=== PATIENT | male | born 1965 | race African-American/Black ===

== ENCOUNTER 2025-10-30 07:32 | Day surgery (SDC) | payer OTHER, SELFPAY ==
--- OUTSIDE RECORDS SUMMARY | 2025-10-08 19:56 | XMS_ITS | Patient Health Record ---
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 Name Role Phone Rex KILGORE, Carol Primary Care Provider Ayad Renee Jr Unavailable Allergies No Known Allergies Reason For Referral No Information Medications Medication SIG (Take, Route, Frequency, Duration) Notes Start Date End Date Status Irbesartan Not-Takin g/PRN Ozempic (0.25 or 0.5 MG/DOSE) Active Baby Aspirin Active Atorvastatin Calcium 20 MG Tablet TAKE 1 TABLET BY MOUTH EVERY DAY Oral; Duration: 90 Active metFORMIN HCl 500 MG Tablet TAKE 1 TABLET BY MOUTH EVERY DAY Oral; Duration: 90 Not-Taking/PRN Losartan Potassium 50 MG Tablet TAKE 1 TABLET BY MOUTH EVERY DAY Oral; Duration: 90 Active Sildenafil Citrate 100 MG Tablet TAKE 1 TABLET(S) NEEDED BY ORAL ROUTE FOR 6 DAYS. Oral; Duration: 30 Active MiraLax (colon prep) 8.3 ounce ((238) grams mixed with Gatorade or Crystal Light orally begin at 5:00 p.m. the day before the procedure; Duration: 1 day 04/02/2020 Not-Taking/PRN Tadalafil 20 MG Tablet TAKE 1 TABLET BY MOUTH EVERY DAY NEEDED Oral; Duration: 30 Not-Taking/PRN Immunizations Vaccine Route Administration Date Status Comme nts Influenza Unknown 07/20/2019 Administered Influenza Unknown 09/16/2024 Administered Social History Social History Drug/Alcohol: Social Info Question Answer Notes AUDIT-C (Standard) Did you have a drink containing alcohol in the past year? Yes How often did you have a drink containing alcohol in the past year? 2 to 3 times a week (3 points) How many drinks did you have on a typical day when you were drinking in the past year? 1 or 2 drinks (0 point) How often did you have six or more drinks on one occasion in the past year? Never (0 point) Points 3 Interpretation Negative Additional Details Category Social Info Options Details Miscellaneous: Marital status: Occupation: cash accountant Section Notes: occasional cigars occasional cigars occasional cigars Problems Problem Type SNOMED Code ICD Code Onset Dates Problem Status W/U Status Risk Notes Problem Colon cancer screening (297054105) Colon cancer screening (Z12.11) Active confirmed Problem Long-term current use of drug therapy (516037937) Encounter for long-term (current) use of other high-risk medications (Z79.899) Active confirmed Problem History of polyp of colon (situation) (115226585) Personal history of colonic polyps (Z86.010) Active confirmed Problem Pre-procedure evaluation check (037576008) Encounter for other preprocedural examination (Z01.818) Active confirmed Vital Signs Temperature 96.7 degrees Fahrenheit 09/16/2025 Blood pressure diastolic 01 mm Hg 09/16/2025 Height 69 in 09/16/2025 Blood pressure systolic 001 mm Hg 09/16/2025 Weight 215.8 lbs 09/16/2025 BMI 31.86 kg/m2 09/16/2025 Encounters Encounter Location Date Provider Diagnosis [facility] [address] [facility] [address] [place] [id number] 09/16/2025 Ayad Moran Jr Colon cancer screening Z12.11 ; Encounter for other preprocedural examination Z01.818 ; Personal history of colonic polyps Z86.010 and Encounter for long-term (current) use of other high-risk medications Z79.899 Assessments Encounter Date Diagnosis (ICD Code) Assessment Notes Treatment Notes Treatment Clinical Notes Section Notes 09/16/2025 Colon cancer screening (ICD-10 - Z12.11) We discussed colonoscopy today. We discussed risks and benefits of the procedure today. He understands these and agrees to proceed. He is advised to stop aspirin and Ozempic 1 week before the procedure. 09/16/2025 Encounter for other preprocedural examination (ICD-10 - Z01.818) We discussed colonoscopy today. We discussed risks and benefits of the procedure today. He understands these and agrees to proceed. He is advised to stop aspirin and Ozempic 1 week before the procedure. 09/16/2025 Personal history of colonic polyps (ICD-10 - Z86.010) We discussed colonoscopy today. We discussed risks and benefits of the procedure today. He understands these and agrees to proceed. He is advised to stop aspirin and Ozempic 1 week before the procedure. 09/16/2025 Encounter for long-term (current) use of other high-risk medications (ICD-10 - Z79.899) We discussed colonoscopy today. We discussed risks and benefits of the procedure today. He understands these and agrees to proceed. He is advised to stop aspirin and Ozempic 1 week before the procedure. Plan Of Treatment Future Test Test Name Order Date COLONOSCOPY 08/18/2016 COLONOSCOPY 04/02/2020 COLONOSCOPY 09/16/2025 Next Appt Details Provider Name:Ayad crisostomo , 10/30/2025 09:10:00 AM, [address] [place] [address] , [place], [place], [id number], Insurance Providers Payer Name Payer Address Payer Phone Subscriber Number Group Number Insured Name Patient Relationship to Insured Coverage Start Date Coverage End Date [facility] [address] [place] [phone] [id number] CHETAN BRASWELL Self - patient is the insured Medical (General) History Medical History History ICD Code diabetes mellitus hypertension hypercholesterolemia Colonoscopy 2020, normal, 5-year follow- up for history of polyps. Surgical History Surgery Date(Month/Year) achilles tendon repair 2004 tonsillectomy as child vasectomy
--- OUTSIDE RECORDS SUMMARY | 2025-10-08 19:56 | XMS_ITS | Data Portability ---
Author Organization [facility], Main Office Address [address] [facility] [address] [place] [id number] Care Team Providers Care Slubber Tender Name Role Phone MONTANA MORAN JR Microbiology Technologist KAITLYNN NEWMAN Primary Care Provider YUNI CUTLER Urologist NIKIA MEJIA Director Of Enterprise Applications RADHA JOSE Advertising Copy Writer RASHEL JOSUE Human Performance Professor [facility] Clinical Radiologist Assessment No assessment recorded. Plan of Treatment Reminders Order Date Submit Date Provider Last Modified By Organization Details Last Modified Time Details Appointments PE EST 2025 08:30A M Kaitlynn Newman PAKrzysztof Not available Not available Not available Lab hemogl obin A1C, finger stick 2024 025 In-Office Order, Internal Use Only DO Not Attach Compendium DO Not Attach Compendium, Do Not Delete/merge, [id number] 08/24/2025 09:06:50 CMP, serum or plasma 2024 025 LEUXS [facility] (Centralized Electronic Ordering - All Locations), Patient Can Go To The Location Of Their Choice, [id number] 08/24/2025 09:54:56 microa lbumin /creat inine, mass ratio, urine 2024 025 LEXUS [facility] (Centralized Electronic Ordering - All Locations), Patient Can Go To The Location Of Their Choice, [id number] 08/24/2025 09:54:56 HbA1c (hemog lobin A1c), blood 2024 025 LEXUS [facility] (Centralized Electronic Ordering - All Locations), Patient Can Go To The Location Of Their Choice, [id number] 08/24/2025 09:54:58 lipid panel, serum 2024 025 LEXUS [facility] (Centralized Electronic Ordering - All Locations), Patient Can Go To The Location Of Their Choice, [id number] 08/24/2025 09:55:19 hemogl obin A1C, finger stick 2024 025 [email or web address] In-Office Order, Internal Use Only DO Not Attach Compendium DO Not Attach Compendium, Do Not Delete/merge, [id number] 06/05/2025 10:44:41 lipid panel, serum 2024 025 LEXUS [facility] (Centralized Electronic Ordering - All Locations), Patient Can Go To The Location Of Their Choice, [id number] 02/13/2025 17:49:50 PSA, serum or plasma - Screen ing 2024 025 LEXUS [facility], [address], [place], [address], 02/13/2025 17:49:51 CMP, serum or plasma 2024 025 [facility], [address], [place], [address], 02/13/2025 17:49:50 TSH, serum or plasma 2024 025 [facility], [address], [place], [address], 02/13/2025 17:49:52 microa lbumin /creat inine, mass ratio, urine 2024 025 LEXUS [facility] (Centralized Electronic Ordering - All Locations), Patient Can Go To The Location Of Their Choice, [id number] 02/13/2025 17:49:51 HbA1c (hemog lobin A1c), blood 2024 025 LEXUS [facility] (Centralized Electronic Ordering - All Locations), Patient Can Go To The Location Of Their Choice, 02/13/2025 17:49:52 hemogl obin A1C, finger stick 2023 024 In-Office Order, Internal Use Only DO Not Attach Compendium DO Not Attach Compendium, Do Not Delete/merge, [id number] 11/04/2024 08:58:05 CMP, serum or plasma 2023 024 [email or web address] [facility] (Centralized Electronic Ordering - All Locations), Patient Can Go To The Location Of Their Choice, 06/02/2025 08:28:00 microa lbumin /creat inine, mass ratio, urine 2023 024 LEXUS [facility] (Centralized Electronic Ordering - All Locations), Patient Can Go To The Location Of Their Choice, 11/04/2024 09:02:07 HbA1c (hemog lobin A1c), blood 2023 024 [email or web address] [facility] (Centralized Electronic Ordering - All Locations), Patient Can Go To The Location Of Their Choice, 06/02/2025 08:28:43 lipid panel, serum 2023 024 [email or web address] [facility] (Centralized Electronic Ordering - All Locations), Patient Can Go To The Location Of Their Choice, 06/02/2025 08:28:17 CBC w/ auto diff 2023 024 [email or web address] [facility] (Centralized Electronic Ordering - All Locations), Patient Can Go To The Location Of Their Choice, 06/02/2025 08:28:29 Referral gastro entero logist referr daniel - Ant colono scopy. Dx: tubula r adenom a. 2024 025 [email or web address] Moran Jr, MD, [address] [place] [address] [place], [address], 08/12/2025 10:07:21 sleep medici ne referr daniel nino, hypert ension , BMI over 30. 2024 025 [facility], [address] [place], [address], 04/03/2025 10:36:40 diabet ic ophtha lmolog y referr al 2024 025 [email or web address] Dev Avila MD, [address] [place], [address], 02/03/2025 11:23:47 Procedures None record ed. Surgeries None record ed. Imaging XR, chest, 2 view 2024 [facility], [address] [place], [address], 02/26/2025 15:07:00 Medication Orders Ozempi c 1 mg/dos e (4 mg/3 mL) subcut aneous pen inject or 2024 025 [facility], [address] [place], [address], 08/24/2025 10:22:00 Ozempi c 0.25 mg or 0.5 mg (2 mg/3 mL) subcut aneous pen inject or 2024 025 [email or web address] [facility]/Pharmacy #[id number], [address] [place], [address], 08/04/2025 15:37:01 benzon atate 100 mg capsul e 2024 025 [facility]/Pharmacy #1026, [address] [place], [address], 03/15/2025 05:01:12 albute rol sulfat e HFA 90 mcg/ac tuatio n aeroso l inhale r 2024 025 [facility]/Pharmacy #1026, [address] [place], [address], 06/05/2025 09:46:45 predni sone 20 mg tablet 04/10/ 2025 07/18/2 025 [facility]/Pharmacy #[id number], [address] [place], [address], 06/05/2025 09:47:01 Patient TargetsNo targets recorded. Patient Instructions Encounter Date Encounter Id Patient Instructions Last Modified By Organization Details Last Modified Time 11/04/2024 [id number] high blood pressure: care instructions Not available 11/04/2024 08:58:03 learning about high blood pressure Not available 11/04/2024 08:58:03 type 2 diabetes: care instructions Not available 11/04/2024 08:58:03 high cholesterol : care instructions Not available 11/04/2024 09:02:11 02/03/2025 [id number] high cholesterol : care instructions [email or web address] Not available 02/03/2025 09:57:28 snoring: care instructions Not available 02/03/2025 10:29:04 Prostate Cancer Screening [email or web address] Not available 02/03/2025 09:57:28 high blood pressure: care instructions Not available 02/03/2025 09:57:28 learning about high blood pressure [email or web address] Not available 02/03/2025 09:57:28 dash diet: care instructions Not available 02/03/2025 10:47:41 type 2 diabetes: care instructions [email or web address] Not available 02/03/2025 09:57:27 hypogonadism: care instructions Not available 02/03/2025 09:57:28 testicular self-exam: care instructions [email or web address] Not available 02/03/2025 09:57:28 02/26/2025 [id number] saline nasal washes: care instructions [email or web address] Not available 02/26/2025 14:23:23 rec. albuterol 1-2 puffs 3x/day x 3 days, then use every 4 hours as needed for shortness of breath / coughing fits pmadden Not available 02/26/2025 14:19:02 Follow up if no improvement or if symptoms worsen. [email or web address] Not available 02/26/2025 14:20:35 06/05/2025 [id number] type 2 diabetes: care instructions [email or web address] Not available 06/05/2025 10:44:40 08/24/2025 [id number] high blood pressure: care instructions Not available 08/24/2025 10:00:08 learning about high blood pressure Not available 08/24/2025 10:00:08 type 2 diabetes: care instructions Not available 08/24/2025 09:03:10 high cholesterol : care instructions Not available 08/24/2025 09:55:17 body mass index: care instructions Not available 08/24/2025 10:00:08 learning about healthy weight Not available 08/24/2025 10:00:08 Reason for Referral Diabetic Ophthalmology Refer ral for Type 2 diabetes mellitus without complication Referring Physician: Kaitlynn Newman Internal Medicine, Encounter Date: 02/03/2025 Microbiology Technologist Referral for Tubular adenoma Repeat colonoscopy. Dx: tubular adenoma. Referring Physician: Kaitlynn Newman, Internal Medicine, Encounter Date: 02/03/2025 Sleep Medicine Referral for Snoring Snoring, hypertension, BMI over 30. Referring Physician: Kaitlynn Newman Internal Medicine, Encounter Date: 02/03/2025 Results Created Date Observation Date Name Description Value Unit Range Abnormal Flag Note LastModifiedBy Organization Detail LastModifiedTime 11/04/20 24 11/04/2024 hemog lobin A1C, finge rstic k A1C 6.1 % 4-6 abnormal Not Available In-Office Order Internal Use Only DO Not Attach Compendium DO Not Attach Compendium, Do Not Delete/merge, [id number] 11/04/2024 08:48:13 02/04/2002/03/2025 COMP. METAB OLIC PANEL (14) glucose 140 mg/dL 70-99 above high normal Not Available [facility] ([facility]) [address] [facility], [place], [address], 02/13/2025 17:49:49 02/04/20 25 02/03/2025 COMP. METAB OLIC PANEL (14) BUN 14 mg/dL 8-27 normal Not Available [facility] ([facility]) [address] [facility] [place], [address], 02/13/2025 17:49:49 02/04/20 25 02/03/2025 COMP. METAB OLIC PANEL (14) creatinine 1.23 mg/dL 0.76-1 .27 normal Not Available [facility] ([facility]) [address] [facility] [place], [address], 02/13/2025 17:49:49 02/04/20 25 02/03/2025 COMP. METAB OLIC PANEL (14) eGFR 67 mL/mi n/1.7 3 >59 normal Not Available [facility] ([facility]) [address] [facility] [place], [address], 02/13/2025 17:49:49 02/04/20 25 02/03/2025 COMP. METAB OLIC PANEL (14) BUN/creatini ne ratio 11 10-24 normal Not Available [facility] ([facility]) [address] [facility] [place], [address], 02/13/2025 17:49:49 02/04/20 25 02/03/2025 COMP. METAB OLIC PANEL (14) sodium 140 mmol/ L 134-14 4 normal Not Available [facility] ([facility]) [address] [place], [address], 02/13/2025 17:49:49 02/04/20 25 02/03/2025 COMP. METAB OLIC PANEL (14) potassium 4.2 mmol/ L 3.5-5. 2 normal Not Available [facility] ([facility]) [address] [place], [address], 02/13/2025 17:49:49 02/04/20 25 02/03/2025 COMP. METAB OLIC PANEL (14) chloride 104 mmol/ L 96-106 normal Not Available [facility] ([facility]) [address] [place], [address], 02/13/2025 17:49:49 02/04/20 25 02/03/2025 COMP. METAB OLIC PANEL (14) carbon dioxide, total 21 mmol/ L 20-29 normal Not Available [facility] ([facility]) [address] [place], [address], 02/13/2025 17:49:49 02/04/20 25 02/03/2025 COMP. METAB OLIC PANEL (14) protein, total 7.2 g/dL 6.0-8. 5 normal Not Available [facility] ([facility]) [address] [place], [address], 02/13/2025 17:49:49 02/04/20 25 02/03/2025 COMP. METAB OLIC PANEL (14) albumin 4.6 g/dL 3.9-4. 9 normal Not Available [facility] ([facility]) [address] [place], [address], 02/13/2025 17:49:49 02/04/20 25 02/03/2025 COMP. METAB OLIC PANEL (14) globulin, total 2.6 g/dL 1.5-4. 5 Not Available [facility] ([facility]) [address] [place], [address], 02/13/2025 17:49:49 02/04/20 25 02/03/2025 COMP. METAB OLIC PANEL (14) bilirubin, total 0.9 mg/dL 0.0-1. 2 normal Not Available [facility] ([facility]) [address] [place], [address], 02/13/2025 17:49:49 02/04/20 25 02/03/2025 COMP. METAB OLIC PANEL (14) alkaline phosphatase 58 IU/L 44-121 normal Not Available [facility] ([facility]) [address] [place], [address], 02/13/2025 17:49:49 02/04/20 25 02/03/2025 COMP. METAB OLIC PANEL (14) AST (SGOT) 16 IU/L 0-40 normal Not Available [facility] ([facility]) [address] [place], [address], 02/13/2025 17:49:49 02/04/20 25 02/03/2025 COMP. METAB OLIC PANEL (14) ALT (SGPT) 22 IU/L 0-44 normal Not Available [facility] ([facility]) [address] [place], [address], 02/13/2025 17:49:49 02/04/20 25 02/04/2025 COMP. METAB OLIC PANEL (14) calcium 9.4 mg/dL 8.6-10 .2 normal Not Available [facility] ([facility]) [address] [place], [address], 02/13/2025 17:49:49 02/04/20 25 02/03/2025 LIPID PANEL cholesterol, total 179 mg/dL 100-19 9 normal Not Available [facility] ([facility]) [address] [place], [address], 02/13/2025 17:49:50 02/04/20 25 02/03/2025 LIPID PANEL triglyceride s 84 mg/dL 0-149 normal Not Available [facility] ([facility]) [address] [place], [address], 02/13/2025 17:49:50 02/04/20 25 02/03/2025 LIPID PANEL HDL cholesterol 67 mg/dL >39 normal Not Available [facility] ([facility]) [address] [place], [address], 02/13/2025 17:49:50 02/04/20 25 02/03/2025 LIPID PANEL VLDL cholesterol lindsey 15 mg/dL 5-40 Not Available [facility] ([facility]) [address] [facility], [place], [address], 02/13/2025 17:49:50 02/04/20 25 02/03/2025 LIPID PANEL LDL chol calc ([email or web address] 97 mg/dL 0-99 Not Available [facility] ([facility]) [address] [facility], [place], [address], 02/13/2025 17:49:50 02/04/20 25 02/03/2025 LIPID PANEL LDL calc comment: LAMINATOR HAND Not Available [facility] ([facility]) [address] [facility], [place], [address], 02/13/2025 17:49:50 02/04/20 25 02/05/2025 ALBUM IN/CR EAT RATIO , RANDO M UR creatinine, urine 87.6 mg/dL not estab. normal Not Available [facility] ([facility]) [address] [facility], [place], [address], 02/13/2025 17:49:51 02/04/20 25 02/05/2025 ALBUM IN/CR EAT RATIO , RANDO M UR albumin, urine <3.0 ug/mL not estab. Not Available [facility] ([facility]) [address] [facility], [place], [address], 02/13/2025 17:49:51 02/04/20 25 02/05/2025 ALBUM IN/CR EAT RATIO , RANDO M UR alb/creat ratio <3 mg/g_ creat 0-29 Cecille l: 0 - 29 Moder ately incre ased: 30 - 300 Sever clyde incre ased: >300 Not Available [facility] ([facility]) [address] [facility], [place], [address], 02/13/2025 17:49:51 02/04/20 25 02/03/2025 PSA TOTAL (REFL EX TO FREE) reflex criteria Commen t The perce nt free PSA is perfo rmed on a refle x basis only when the total PSA is betwe en 4.0 and 10.0 ng/mL . Not Available [facility] ([facility]) [address] [facility], [place], [address], 02/13/2025 17:49:51 02/04/20 25 02/04/2025 PSA TOTAL (REFL EX TO FREE) prostate specific Ag 0.5 NG/mL 0.0-4. 0 normal Lianne ECLIA metho dolog y. Accor ding to the Ameri can Urolo gical Assoc iatio n, Serum PSA shoul d decre ase and remai n at undet ectab le level s after radic al prost atect sabrina. The AUA defin es bioch emica l recur rence as an initi al PSA value 0.2 ng/mL or great er follo wed by a subse quent confi rmato ry PSA value 0.2 ng/mL or great er. Value s obtai brisa with diffe rent assay metho ds or kits canno t be used inter allan eably . Resul ts canno t be inter prete d as absol jeb evide nce of the prese nce or absen ce of césar nieves se. Not Available [facility] ([facility]) [address] [facility], [place], [address], 02/13/2025 17:49:51 02/04/2002/13/2025 THYRO ID STIMU LATIN G HORMO NE TSH-icma 1.7 uu/mL Refer ence Range : Non-P regna nt Adult 0.450 -4.50 0 Not Available [facility] [address] [facility], [place], [address], 02/13/2025 17:49:51 02/04/20 25 02/03/2025 HEMOG LOBIN A1C hemoglobin A1C 6.3 % 4.8-5. 6 above high normal Predi abete s: 5.7 - 6.4 Diabe collin: >6.4 Glyce ines contr ol for adult s with diabe collin: <7.0 Not Available [facility] ([facility]) [address] [facility], [place], [address], 02/13/2025 17:49:52 06/05/2006/05/2025 hemog lobin A1C, nichole rstic k A1C 6.9 % 4-6 abnormal Not Available In-Office Order Internal Use Only DO Not Attach Compendium DO Not Attach Compendium, Do Not Delete/merge, [id number] 06/05/2025 09:39:57 08/24/2008/24/2025 hemog lobin A1C, finge rstic k A1C 5.1 % 4-6 normal Not Available In-Office Order Internal Use Only DO Not Attach Compendium DO Not Attach Compendium, Do Not Delete/merge, [id number] 08/24/2025 08:34:44 02/27/2002/26/2025 XR, chest , 2 view Chest 2 Views Fronta l and Lat Reason : cough COMPAR LUCY: None. FINDIN GS: LINES AND TUBES: None. LUNGS AND PLEURA : Clear lungs. Normal pulmon narciso vascul arity. No pleura l effusi on. No pneumo thorax . HEART, MEDIAS TINUM AND ELEN: Heart is normal in size. Normal medias tinal and hilar contou r. BONES AND SOFT TISSUE S: No acute abnorm ality. IMPRES JOHNY: No acute cardio pulmon narciso diseas e is seen. WSN: [id number] Orderi ng Physic german: Steve Newman Dictat ed By: Jan Bernstein MD, V Dictat ed Date/T sheri: 3:03 pm Review ed By: Mary abbasi MD, Jan Corbett Signed By: Jan Bernstein MD, V Signed Date/T sheri: 3:03 pm Transc ribed By: VLAD Transc ribed Date/T sheri: 3:03 pm Patien t Class: Outpat ient [facility] ([facility]) [address] , [place], [address], 03/01/2025 13:05:07 02/27/2002/26/2025 XR, chest No observ ation record ed. [facility] [address], [place], [address], 03/06/2025 14:07:19 Result Notes Documentation Provider Name and Address Organization Details Recorded Time Xr, Chest, 2 View : Chest 2 Views Frontal and Lat Reason: cough COMPARISON: None. FINDINGS: LINES AND TUBES: None. LUNGS AND PLEURA: Clear lungs. Normal pulmonary vascularity. No pleural effusion. No pneumothorax. HEART, MEDIASTINUM AND ELEN: Heart is normal in size. Normal mediastinal and hilar contour. BONES AND SOFT TISSUES: No acute abnormality. IMPRESSION: No acute cardiopulmonary disease is seen. WSN: [id number] Ordering Physician: Kaitlynn Newman Dictated By: Jan Wilburn MD, V Dictated Date/Time: 02/26/25 3:03 pm Reviewed By: Jan Wilburn MD, V Signed By: Jan Wilburn MD, V Signed Date/Time: 02/26/25 3:03 pm Transcribed By: VLAD Transcribed Date/Time: 02/26/25 3:03 pm Patient Class: Outpatient Kaitlynn Newman PA-C [id number] [facility] [address] [facility], [place], [address], [facility] 03/01/[place]25 13:05:07 Problems Name Problem SNOMED Code Status Onset Date Resolution Date Notes Provider Name and Address Organization Details Recorded Time Hyperten sive disorder 73108907 Completed 07/22/2019 Barbara fuller [facility] 9 09:41:10 [facility] hyperten johny 73965126 Active Not Available [facility] 3 17:06:32 Influenz a vaccine needed 92111574865 06 Completed 200806/09/2014 RECORDED 02/20/20 09 8:55AM BY DM FERREIRA HISTORIC AL SUMMARY Nola fuller [facility] 6 09:01:29 Active or passive immuniza tion Completed 200806/09/2014 RECORDED 02/20/20 09 8:53AM BY NOLA JEAN MD, OFFICE VISIT Nola fuller, [facility] 6 09:01:29 Influenz a vaccine needed [id number] 06 Completed 200806/29/2014 RECORDED 02/20/20 09 8:55AM BY DM FERREIRA, HISTORIC AL SUMMARY Nola fuller, [facility] 6 09:01:29 Active or passive immuniza tion Completed 200806/29/2014 RECORDED 02/20/20 09 8:53AM BY NOLA JEAN MD, OFFICE VISIT Nola fuller, [facility] 6 09:01:29 Blood chemistr y outside referenc e range 824706106 Completed 201206/09/2014 RECORDED 07/29/20 13 9:08AM BY JOYCELYN NEWMAN MA, ANNOTATI ON/ADDEN DUM Nola fuller, [facility] 6 09:01:29 Balanopo sthitis 50512415 Completed 201206/09/2014 RECORDED 07/29/20 13 9:08AM BY JOYCELYN NEWMAN MA, JOSE ON/ADDEN DUM Nola fuller, [facility] 6 09:01:29 Type 2 diabetes mellitus without complica tion 951410085 Active 2012 DM Salcedo, [facility] 5 08:34:11 Hyperlip idemia 30825651 Active 2012 Not Available [facility] 3 17:06:32 Uncontro lled type 2 diabetes mellitus 710750899 Completed 201206/09/2014 RECORDED 07/29/20 13 9:08AM BY JOYCELYN NEWMAN MA, ANNOTATI ON/ADDEN DUM Nola fuller, [facility] 6 09:01:28 Increase d frequenc y of urinatio n 109131947 Completed 201206/09/2014 RECORDED 07/29/20 13 9:08AM BY JOYCELYN NEWMAN MA, JOSE ON/ADDEN DUM Nola Elizabeth'Alessand ro null, [facility] 6 09:01:29 Viral exanthem [id number] Completed 201206/09/2014 IMPRESSI ON: RECENT VIRAL LIKE ILLNESS, NOW WITH MILDLY PRURITIC PAPULAR SYSTEMIC APPEARRI NG RASH. NOT CONSISTE NT WITH HAND/ADRIEL T/MOUTH ON EXAM. REASSURE D PT THIS WILL LIKELY RESOLVE SPONTANE OUSLY. MAY CONTINUE WITH OTC BENADRYL PRN. F/U IF SXS WORSEN OR FAIL TO IMPROVE. ; RECORDED 07/29/20 13 9:08AM BY JOYCELYN NEWMAN MA, JOSE ON/ADDEN DUM Nola Johnson'Alessand ro null, [facility] 6 09:01:28 Visual disturba nce 69648936 Completed 201206/09/2014 RECORDED 07/29/20 13 9:08AM BY JOYCELYN NEWMAN MA, JOSE ON/ADDEN DUM Nola Elizabeth'Alessand ro null, [facility] 6 09:01:28 Blood chemistr y outside referenc e range 530506555 Completed 201206/29/2014 RECORDED 07/29/20 13 9:08AM BY JOYCELYN NEWMAN MA, JOSE ON/ADDEN DUM Nola Eliazbeth'Alessand ro null, [facility] 6 09:01:29 Balanopo sthitis 69004423 Completed 201206/29/2014 RECORDED 07/29/20 13 9:08AM BY JOYCELYN NEWMAN MA, JOSE ON/ADDEN DUM Nola D'Alessand ro null, [facility] 6 09:01:29 Uncontro lled type 2 diabetes mellitus 708033463 Completed 201206/29/2014 RECORDED 07/29/20 13 9:08AM BY JOYCELYN NEWMAN MA, JOSE ON/ADDEN DUM Nola D'Alessand ro null, [facility] 6 09:01:28 Increase d frequenc y of urinatio n 040902334 Completed 201206/29/2014 RECORDED 07/29/20 13 9:08AM BY JOYCELYN NEWMAN MA, JOSE ON[facility] LangeAlessand ro null, [facility] 6 09:01:29 Viral exanthem [id number] Completed 201206/29/2014 IMPRESSI ON: RECENT VIRAL LIKE ILLNESS, NOW WITH MILDLY PRURITIC PAPULAR SYSTEMIC APPEARRI NG RASH. NOT CONSISTE NT WITH HAND/ADRIEL T/MOUTH ON EXAM. REASSURE D PT THIS WILL LIKELY RESOLVE SPONTANE OUSLY. MAY CONTINUE WITH OTC BENADRYL PRN. F/U IF SXS WORSEN OR FAIL TO IMPROVE. ; RECORDED 07/29/20 13 9:08AM BY JOYCELYN NEWMAN MA, JOSE ON[facility] Nola Belle ro null, [facility] 6 09:01:28 Visual disturba nce 05494022 Completed 201206/29/2014 RECORDED 07/29/20 13 9:08AM BY JOYCELYN NEWMAN MA, JOSE ON[facility] Nola Belle ro null, [facility] 6 09:01:28 Adult health examinat ion Completed 201306/09/2014 RECORDED 02/05/20 14 8:29AM BY DAMARIS SCALES MA, JOSE ON[facility] Nola Belle ro null, [facility] 6 09:01:29 Hemorrho ids [id number] Completed 201306/09/2014 RECORDED 02/05/20 14 8:29AM BY DAMARIS SCALES MA, JOSE ON/[facility] LangeAlesamm ro null, [facility] 6 09:01:28 Renewal of prescrip tion Completed 201306/09/2014 RECORDED 02/05/20 14 8:29AM BY DAMARIS SCALES MA, ANNOTATI ON/ADDEN DUM Nola stroud null, [facility] 6 09:01:29 Patient status finding [id number] Completed 201306/09/2014 RECORDED 02/05/20 14 8:29AM BY DAMARIS SCALES MA, ANNOTTANESHA ON/ADDEN DUM Nola Belle ro null, [facility] 6 09:01:29 Tubercul osis screenin g Completed 201306/09/2014 RECORDED 02/05/20 14 8:30AM BY DAMARIS SCALES MA, NURSE VISIT Nola fuller, [facility] 6 09:01:29 Administ ration of diphther ia and tetanus vaccine Completed 201305/01/2017 Shirley fuller, [facility] 7 09:07:58 Adult health examinat ion Completed 201306/29/2014 RECORDED 02/05/20 14 8:29AM BY DAMARIS SCALES MA, JOSE ON/ADDEN DUM Nola fuller, [facility] 6 09:01:29 Hemorrho ids [id number] Completed 201306/29/2014 RECORDED 02/05/20 14 8:29AM BY DAMARIS SCALES MA, JOSE ON/ADDEN DUM Nola fuller, [facility] 6 09:01:28 Renewal of prescrip tion Completed 201306/29/2014 RECORDED 02/05/20 14 8:29AM BY DAMARIS SCALES MA, JOSE ON/ADDEN RONN fuller, [facility] 6 09:01:29 Patient status finding [id number] Completed 201306/29/2014 RECORDED 02/05/20 14 8:29AM BY DAMARIS SCALES MA, JOSE ON/ADDEN DUM Nola fuller, [facility] 6 09:01:29 Tubercul osis screenin g Completed 201306/29/2014 RECORDED 02/05/20 14 8:30AM BY DAMARIS SCALES MA, NURSE VISIT Nola fuller [facility] 6 09:01:29 Tubular adenoma 851247679 Active 2016 Not Available [facility] 3 17:06:32 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 Procedures Surgical History Date Name Laterality Status Provider Name and Address Organization Details Recorded Time 02/04/20 25 Diabetic Foot Exam (Monofilament) completed Carlos Quintanilla [facility] 02/03/2025 09:47:21 01/15/20 24 Diabetic Foot Exam (Monofilament) completed Kaitlynn Newman PA-C [address] [address], [place], [address], [facility] 01/15/2024 10:38:41 04/11/20 23 Diabetic Foot Exam (Monofilament) completed Kaitlynn Newman PA-C [address] [address], [place], [address], [facility] 04/11/2023 10:52:21 12/20/19 23 Diabetic Foot Exam (Monofilament) completed Kaitlynn Newman PA-C [address], [place], [address], [facility] 12/20/2022 09:56:52 04/12/20 21 Diabetic Foot Exam (Monofilament) completed German Chance [facility] 04/12/2021 09:47:47 10/19/20 20 Diabetic Foot Exam (Monofilament) completed Kaitlynn Newman PA-C [address] [facility] [address], [place], [address], [facility] 10/19/2020 13:04:47 06/18/20 20 Colonoscopy completed Aida Wilburn [facility] 06/23/2020 09:43:48 09/29/20 18 Vasectomy completed Ly Ferreira [place] [facility] 10/19/2020 09:23:43 12/08/19 17 Egd diagnostic brush wash completed Connie Coles [facility] 05/15/2018 15:45:57 11/19/19 14 Other completed Karolina faustin [place] [facility] 04/13/2016 08:48:46 08/19/19 72 Tonsillectomy completed Ly Ferreira [place] [facility] 11/04/2021 09:55:38 03/19/19 71 Tonsillectomy completed Karolina faustin [place] [facility] 04/13/2016 08:48:46 Tonsillectomy completed Shirley Edward [place] [facility] 05/01/2017 09:16:30 Imaging Results None recorded. Procedure Notes None recorded. Medical Equipment None Reported. Allergies No known drug allergies Medications Name Sig Start Date Stop Date Status Note LastModified by Organization Details LastModified Time Prescript ion - Clarifica tion active Not Available Not Available Not Available losartan 50 mg tablet TAKE 1 TABLET BY MOUTH EVERY DAY 04/26 completed Not Available Not Available Not Available amoxicill in 500 mg capsule TAKE 1 CAPSULE BY MOUTH EVERY 8 HOURS UNTIL GONE 01/15 completed Not Available Not Available Not Available metformin 500 mg tablet Take 1 tablet every day by oral route for 60 days. 01/20 completed Not Available Not Available Not Available atorvasta tin 20 mg tablet TAKE 1 TABLET BY MOUTH DAILY 2024 active Not Available Not Available Not Avai lable insulin glargine (U-100) 100 unit/mL subcutane ous solution JANAY X1 IN OFFICE 02/19 completed RECORDED 02/20/20 09 8:57AM BY NOLA JEAN MD, JOSE ON/ADDEN DUM; Not Available Not Available Not Available ibuprofen 800 mg tablet 1 TABLET EVERY 8 HOURS NEEDED FOR PAIN 06/05 completed Not Available Not Available Not Available benzonata te 200 mg capsule TAKE 1 CAPSULE BY MOUTH 2 OR 3 TIMES DAILY FOR COUGH FOR 5 DAYS 06/05 completed Not Available Not Available Not Available prednison e 20 mg tablet TAKE 3 TABLETS BY MOUTH DAILY FOR 2 DAYS THEN 2 TABLET DAILY FOR 2 DAYS THEN 1 TABLET FOR 2 DAYS 06/05 completed Not Available Not Available Not Available simvastat in 10 mg tablet DAILY 03/19 completed RECORDED 03/19/20 12 9:07AM BY NOLA JEAN MD, JOSE ON/ADDEN DUM; Not Available Not Available Not Available amlodipin e 2.5 mg tablet TAKE 1 TABLET BY MOUTH EVERY DAY AT BEDTIME FOR 30 DAYS 12/20 completed Not Available Not Available Not Available acetamino phen 500 mg tablet TAKE 1 TABLET EVERY 6 HOURS NEEDED FOR PAIN active Not Available Not Available No t Available sildenafi l 100 mg tablet Take 1 tablet as needed by oral route for 6 days. 10/18 completed Not Available Not Available Not Available benzonata te 100 mg capsule Take 1 capsule 3 times a day by oral route as needed for 10 days. 03/15 completed Not Available Not Available Not Available simvastat in 20 mg tablet TAKE 1 TABLET BY MOUTH DAILY 05/02 completed Not Available Not Available Not Available lisinopri l 10 mg tablet Take 1 tablet every day by oral route for 30 days. 2013 active Not Available Not Available Not Avai lable polymyxin B sulfate 10,000 unit-trim ethoprim 1 mg/mL eye drops Instill 1 drop 3 times a day by ophthalm ic route as directed for 7 days. 05/13 completed Not Available Not Available Not Available losartan 25 mg tablet TAKE 1 TABLET BY MOUTH EVERY DAY 04/11 completed Not Available Not Available Not Available irbesarta n 75 mg tablet Take 1 tablet twice a day by oral route for 90 days. 07/22 completed Not Available Not Available Not Available gabapenti n 100 mg capsule TAKE 1 CAPSULE BY MOUTH THREE TIMES A DAY FOR 30 DAYS 08/16 completed Not Available Not Available Not Available irbesarta n 150 mg tablet Take 1 tablet every day by oral route for 90 days. 12/17 completed Not Available Not Available Not Available Aspir-81 mg tablet,de layed release Take 1 tablet every day by oral route. 2009 active Not Available Not Available Not Avai lable albuterol sulfate HFA 90 mcg/actua tion aerosol inhaler INHALE 2 PUFFS 4 TIMES A DAY FOR SHORTNES S OF BREATH OR WHEEZING FOR 14 DAYS 06/05 completed Not Available Not Available Not Available testoster one 1 % (25 mg/2.5 gram) transderm al gel packet 07/22 completed Not Available Not Available Not Available ipratropi um bromide 42 mcg (0.06 %) nasal spray TAKE 2 SPRAYS INTO NOSTRILS 3-4 TIMES PER DAY ALLERGY SYMPTOMS X7 DAYS NEEDED FOR POSTNASA L DRIP 06/05 completed Not Available Not Available Not Available losartan 100 mg tablet TAKE 1 TABLET BY MOUTH DAILY 2024 active Not Available Not Available Not Avai lable diazepam 5 mg tablet 12/17 completed Not Available Not Available Not Available testoster one 1 % (50 mg/5 gram) transderm al gel packet 07/22 completed Not Available Not Available Not Available oxycodone 5 mg tablet 12/17 completed Not Available Not Available Not Available cyclobenz aprine 5 mg tablet TAKE 1 TABLET BY MOUTH EVERY DAY AT BEDTIME NEEDED FOR 30 DAYS 08/16 completed Not Available Not Available Not Available tadalafil 20 mg tablet TAKE 1 TABLET BY MOUTH EVERY DAY NEEDED 2024 active Not Available Not Available Not Avai lable metformin ER 500 mg tablet,ex tended release 24hr (osmotic) BID 03/06 completed RECORDED 03/06/20 11 8:40AM BY NOLA JEAN MD, ANNOTATI ON/ADDEN DUM; Not Available Not Available Not Available IBU-200 take 3 tablets as needed 01/15 completed Not Available Not Available Not Available Freestyle System NA 12/27 completed RECORDED 02/25/20 10 4:22PM BY TERRANCE NORTON MD, MEDICATI ON AUTO-MIKA CTIVATIO N; Not Available Not Available Not Available OneTouch Ultra Test TID. DIAGNOSI S: DIABETES 01/01 completed RECORDED 01/01/20 09 2:31PM BY TOPHER Erickson, HISTORIC AL SUMMARY; NOT COVER PER PHARM Not Available Not Available Not Available OneTouch Ultra2 Meter NA 01/01 completed RECORDED 01/01/20 09 2:31PM BY TOPHER Erickson, HISTORIC AL SUMMARY; NOT COVERED PER PHARMACY Not Available Not Available Not Available Gavilyte- C 240 gram-22.7 2 gram-6.72 gram-5.84 gram oral solution 10/26 completed Not Available Not Available Not Available B12 1 daily active unknown strength Not Available Not Available Not Available Afluria Quad 60 mcg/0.5 mL intramusc ular suspensio n 01/28 completed Not Available Not Available Not Available Ozempic 0.25 mg or 0.5 mg (2 mg/1.5 mL) subcutane ous pen injector 0.5 mg SC weekly. 07/21 completed Not Available Not Available Not Available Flucelvax Quad (PF) 60 mcg (15 mcg x 4)/0.5 mL IM syringe 11/11 completed Not Available Not Available Not Available Ozempic 1 mg/dose (4 mg/3 mL) subcutane ous pen injector Inject 1 mg every week by subcutan eous route as directed for 28 days, for diabetes . 2024 active Not Available Not Available Not Avai lable Ozempic 0.25 mg or 0.5 mg (2 mg/3 mL) subcutane ous pen injector INJECT 0.25 MG SUBCUTAN EOUSLY EVERY WEEK DIRECTED . ROTATE INJECTIO N SITES IN THE ABDOMEN, THIGH OR UPPER ARM. 08/04 completed Not Available Not Available Not Available Vitals Date Recorded Systolic And Diastolic Provider Name and Address Organization Details Last Updated DateTime 02/03/2025 126/92 mm[Hg] Kaitlynn Newman PA-C [address] [address], [place], [address], [facility] 02/03/2025 10:24:28 Date Recorded Body height Body mass index (BMI) Body weight Heart rate Oxygen saturation Body temperature Systolic And Diastolic Provider Name and Address Organization Details Last Updated DateTime 5 177.8 cm 33.3 kg/m2 159701. 83 g 80 /min 99 % 98.7 [degF] 137/91 mm[Hg] Molly Cai LPN [facility] 5 09:45:05 Date Recorded Body height Body mass index (BMI) Body weight Heart rate Oxygen saturation Body temperature Systolic And Diastolic Provider Name and Address Organization Details Last Updated DateTime 5 177.8 cm 33.3 kg/m2 819786. 43 g 107 /min 98 % 97.8 [degF] 128/88 mm[Hg] Karolina schmitz [facility] 5 13:38:50 Date Recorded Body height Body mass index (BMI) Body weight Heart rate Oxygen saturation Body temperature Systolic And Diastolic Provider Name and Address Organization Details Last Updated DateTime 5 177.8 cm 32.4 kg/m2 887641. 88 g 90 /min 97 % 97.4 [degF] 132/81 mm[Hg] Simran Conway [facility] 5 09:47:21 Date Recorded Body height Body mass index (BMI) Body weight Heart rate Oxygen saturation Body temperature Systolic And Diastolic Provider Name and Address Organization Details Last Updated DateTime 5 177.8 cm 30.4 kg/m2 89827.5 8 g 91 /min 96 % 97.4 [degF] 124/82 mm[Hg] Harry thomas [facility] [place] 5 08:41:26 Date Recorded Body height Body mass index (BMI) Body weight Heart rate Oxygen saturation Body temperature Systolic And Diastolic Provider Name and Address Organization Details Last Updated DateTime 4 177.8 cm 32.6 kg/m2 424993. 27 g 87 /min 99 % 97.8 [degF] 143/97 mm[Hg] Simran Conway MA [facility] 4 08:58:38 Date Recorded Systolic And Diastolic Provider Name and Address Organization Details Last Updated DateTime 11/04/2024 116/96 mm[Hg] Molly Cai LPN [facility] 11/04/2024 09:14:46 Social History Question Answer Notes LastModified by Organizat ion Details LastModified Time Tobacco Smoking Status Current Some Day Smoker Cigars a few times weekly DM George, [facility] 12/20/2022 09:11:02 Do You Have An Advance Directive? No Information not available 05/14/2024 Is Blood Transfusion Acceptable In An Emergency? Yes Information not available 04/13/2016 What Is Your Level Of Caffeine Consumption? Moderate 1 Serving Of Coffee Daily Information not available 01/15/2024 How Much Tobacco Do You Chew? None Information not available 04/13/2016 What Type Of Diet Are You Following? DIABETIC [email or web address] Information not available 10/19/2020 Which Illicit Or Recreational Drugs Have You Used? Marijuana Smoking And Edibles, About Once Weekly Information not available 12/20/2022 Live Alone Or With Others? Alone Pt Has Partners / 2 Children Age 30 And 18 [email or web address] Information not available 03/22/2022 Do You Take Precautions To Prevent Distracted Driving? Yes Information not available 04/13/2016 How Often Do You Need To Have Someone Help You When You Read Instructions, Pamphlets, Or Other Written Material From Your Doctor Or Pharmacy? Never Information not available 04/13/2016 Have You Served In The ? No [email or web address] Information not available 05/01/2017 Have You Or Anyone In Your Household Had Any Of The Following Symptoms In The Last 14 Days: Sore Throat, Cough, Chills, Body Aches For Unknown Reasons, Shortness Of Breath For Unknown Reasons, Loss Of Smell, Loss Of Taste, Fever At Or Greater Than 100 Degrees Fahrenheit? No [email or web address] Information not available 04/12/2021 Are You Or Anyone In Your Household A Health Care Provider Or Emergency Responder? No [email or web address] Information not available 04/12/2021 To The Best Of Your Knowledge Have You Been In Close Proximity To Any Individual Who Tested Positive For COVID-19? No Information not available 10/19/2020 Have You Recently Traveled To A COVID-19 High Risk Area Or Gathering In The Last 10 Days? No [email or web address] Information not available 04/12/2021 What Was The Date Of Your Most Recent Tobacco Screening? 02/03/2025 Information not available 02/03/2025 How Many Children Do You Have? 2 Michaela And Jeanette Information not available 01/15/2024 Do You Use Protection During Sex? Usually Information not available 04/13/2016 Do You Use Your Seat Belt Or Car Seat Routinely? Yes [email or web address] Information not available 11/04/2021 Seat Belts Used Routinely Yes [email or web address] Information not available 03/22/2022 Are You Sexually Active? Yes Information not available 04/13/2016 Smoke Alarm In Home Yes [email or web address] Information not available 03/22/2022 Do You Have Smoke And Carbon Monoxide Detectors In Your Home? Yes [email or web address] Information not available 11/04/2021 At What Age Did You Start Smoking Tobacco? 37 Information not available 12/20/2022 Are You Passively Exposed To Smoke? No Information not available 04/13/2016 How Much Tobacco Do You Smoke? No Information not available 04/13/2016 Do You Use Sunscreen Routinely? Yes Information not available 04/13/2016 How Many Years Have You Smoked Tobacco? 22 Information not available 02/03/2025 Sex: Unknown Functional Status Question Answer Note LastModified by Organizat ion Details LastModified Time Do you use any illicit or recreational drugs? Yes Information not available 12/20/2022 Do you or have you ever used any other forms of tobacco or nicotine? No [email or web address] Information not available 12/20/2022 What is your level of alcohol consumption? Occasional [email or web address] Information not available 07/31/2014 Do you or have you ever used smokeless tobacco? Never used smokeless tobacco [email or web address] Information not available 10/19/2020 Are you currently employed? Yes [email or web address] Information not available 07/31/2014 Are you able to walk independently without assistance or assistive devices? [email or web address] Information not available 12/20/2022 Are you able to care for yourself independently? 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 Never used electronic cigarettes Information not available 12/20/2022 What is your exercise level? Occasional gym 3 x week and golf [email or web address] Information not available 05/14/2024 Mental Status None recorded. Family History Relationship Description Onset Age of this Age Resolved Age Notes LastModified by Organization Details LastModified Time Mother Diabetes mellitus 80 Mom was not on insuli n [email or web address] Not available 05/01/2017 09:21:54 Mother Parkinson's disease [email or web address] Not available 03/22 09:07:05 Mother Dementia [email or web address] Not avail able 04/13/2016 09:32:43 Father Hypertensive disorder Dad at age 81 [email or web address] Not available 05/01/2017 09:20:19 Father Malignant neoplasm of stomach 78 81 [email or web address] Not available 09:23:29 Brother Hyperlipidem ia [email or web address] Not available 03/22 09:07:05 Medical History Condition Response Other N Gout N Kidney Stones N Blood Diseases N Hyperthyroidism N Breast Cancer N Depression N COPD N Lung Disease N Hypothyroidism N Defects or Inherited Disease N Anesthesia Complications N Headaches/Migraines N Varicose Veins N Anxiety Disorder N Obesity N Vision or Eye Problems N Arthritis N Head Injury/Concussion N Polyps N Infertility N Congenital Anomalies N Acid Reflux (GERD) Y Cancer N Stroke N ADHD N Endometriosis N High Cholesterol Y Liver Disease N Fibromyalgia N Kidney Disease N Heart Problems N Ear or Hearing Problems N Hospitalizations N Thyroid Problems N GI Problems N Acne N Eating Disorder N Skin Problems N Anemia N Constipation N Bladder Problems N Mental Illness N Ovarian Cancer N Diabetes Y Blood Transfusions N Seizures/Epilepsy N Tuberculosis N AIDS/HIV N Congestive Heart Failure (CHF) N Eczema N Diverticulitis N Abuse/Domestic Violence N Asthma N Allergies N Reflux/GERD N Hepatitis N Pulmonary Embolism N Hypertension Y Chicken Pox N Autism Spectrum Disorder (ASD) N Osteoporosis N Immunizations Vaccine Type Date Status Note Provider Nam e and Address Organization Details Recorded Time Td (adult), 2 Lf tetanus toxoid, preservative free, adsorbed 5 completed Karla fuller, [facility] 08/23/2023 08:30:19 pneumococcal polysaccharide PPV23 9 completed Karla fuller, [facility] 08/23/2023 08:30:19 Influenza, split virus, trivalent, preservative 8 completed Karla fuller, [facility] 08/23/2023 08:30:19 Tdap 4 completed Karla fuller, [facility] 08/23/2023 08:30:19 Influenza, split virus, quadrivalent, preservative 7 completed Karla fuller, [facility] 08/23/2023 08:30:19 Influenza, split virus, quadrivalent, preservative 9 completed Karla fuller, [facility] 08/23/2023 08:30:19 COVID-19, mRNA, LNP-S, PF, 30 mcg/0.3 mL dose 1 completed Karla Gutierrez null, [facility] 08/23/2023 08:30:19 COVID-19, mRNA, LNP-S, PF, 30 mcg/0.3 mL dose 1 completed Karla Gutierrez null, [facility] 08/23/2023 08:30:19 COVID-19, mRNA, LNP-S, PF, 30 mcg/0.3 mL dose 1 completed Karla Gutierrez null, [facility] 08/23/2023 08:30:19 Influenza, split virus, quadrivalent, PF 1 completed Karla Gutierrez null, [facility] 08/23/2023 08:30:19 COVID-19, mRNA, LNP-S, PF, 30 mcg/0.3 mL dose, cassius-sucrose 2 completed Karla Gutierrez null, [facility] 08/23/2023 08:30:19 Influenza, split virus, quadrivalent, PF 0 completed Karla Gutierrez null, [facility] 08/23/2023 08:30:19 Influenza, split virus, trivalent, preservative 6 completed Karla Gutierrez null, [facility] 08/23/2023 08:30:19 Influenza, MDCK, quadrivalent, PF 9 completed Karla Gutierrez null, [facility] 08/23/2023 08:30:19 zoster recombinant 2 completed Karla Gutierrez null, [facility] 08/23/2023 08:30:19 Influenza, high-dose, trivalent, PF 8 completed Karla Gutierrez null, [facility] 08/23/2023 08:30:19 Influenza, split virus, trivalent, preservative 4 completed Karla Gutierrez null, [facility] 08/23/2023 08:30:19 Influenza, split virus, trivalent, preservative 5 completed Karla Gutierrez null, [facility] 08/23/2023 08:30:19 Influenza, split virus, trivalent, PF 4 completed Karla Guteirrez null, [facility] 08/23/2023 08:30:19 COVID-19, mRNA, LNP-S, bivalent, PF, 30 mcg/0.3 mL dose 2 completed Karla Gutierrez null, [facility] 08/23/2023 08:30:19 Influenza, split virus, quadrivalent, PF 3 completed Karla Gutierrez null, [facility] 08/23/2023 08:30:19 zoster recombinant 2 completed Karla Gutierrez null, [facility] [place] 01/15/2024 12:51:14 Td (adult), 5 Lf tetanus toxoid, preservative free, adsorbed 4 completed Ines Miles null, [facility] [place] 01/21/2024 09:28:11 Pneumococcal conjugate PCV20, polysaccharide [id number] conjugate, adjuvant, PF 5 completed Karolina June [place] null, [facility] 02/26/2025 13:30:30 Influenza, split virus, quadrivalent, PF 2 completed Kaitlynn Newman PA-C [address], [address], [facility] 08/16/2022 13:43:23 Influenza, split virus, trivalent, PF 4 completed Kaitlynn Newman PA-C [address], [address], [facility] 11/04/2024 10:32:18 Past Encounters Encounter ID Performer Location Encounter Start Date Encounter Closed Date Diagnosis/Indication Diagnosis SNOMED-CT Code Diagnosis ICD10 Code Diagnosis IMO Codes Diagnosis Note [id number] autoEComm erce [address] [facility] [place] [address] 12/29/2008 00:00:00 [id number] autoEComm erce [address] [facility] [place] [address] 12/29/2008 00:00:00 [id number] autoEComm erce [address] [facility] [address] [place] [address] 01/07/2009 00:00:00 [id number] autoEComm erc [address] [facility] [place] [address] 01/07/2009 00:00:00 [id number] autoEComm erce [address] [facility] [address] [place] [address] 01/29/2009 00:00:00 [id number] autoEComm erce [address] [facility] [address] [place] [address] 02/19/2009 00:00:00 [id number] autoEComm erce [address] [facility] [address] [place] [address] 02/19/2009 00:00:00 [id number] autoEComm erce [address] [facility] [address] [place] [address] 02/19/2009 00:00:00 [id number] autoEComm erce [address] [facility] [address] [place] [address] 06/24/2009 00:00:00 [id number] autoEComm erce [address] [facility] [place] [address] 06/24/2009 00:00:00 [id number] autoEComm erce [address] [facility] [place] [address] 06/24/2009 00:00:00 [id number] autoEComm erce [address] [facility] [place] [address] 03/03/2010 00:00:00 [id number] autoEComm erce [address] [facility] [place] [address] 03/03/2010 00:00:00 [id number] autoEComm erce [address] [facility] [place] [address] 03/03/2010 00:00:00 [id number] autoEComm erce [address] [facility] [place] [address] 03/03/2010 00:00:00 [id number] autoEComm erce [address] [facility] [place] [address] 08/12/2010 00:00:00 [id number] autoEComm erce [address] [facility] [place] [address] 08/12/2010 00:00:00 [id number] autoEComm erce [address] [facility] [place] [address] 08/12/2010 00:00:00 [id number] autoEComm erce [address] [facility] [place] [address] 03/06/2011 00:00:00 [id number] autoEComm erce [address] [facility] [place] [address] 03/06/2011 00:00:00 [id number] autoEComm erce [address] [facility] [place] [address] 03/19/2012 00:00:00 [id number] autoEComm erce [address] [facility] [place] [address] 03/19/2012 00:00:00 [id number] autoEComm erce [address] [facility] [place] [address] 07/29/2013 00:00:00 [id number] autoEComm erce [address] [facility] [place] [address] 07/29/2013 00:00:00 [id number] Rashel Wong [facility] Main Office [address] [facility] [address] [place] [address] 07/31/2014 08:43:23 07/31/2014 09:47:43 Type 2 diabetes mellitus without complication [id number] risk/benef it prostate cancer screening discussed, pt will defer Screening for malignant neoplasm of colon 375139683 Body mass index 30+ - obesity 345134620 Hypertensive disorder 14556810 he will check readings at home and send message on portal or call in 6 wks. he will do his labs in 4 wks. Adult [facility] th examination [id number] Rashel Judith [facility] Main Office [address] [facility] [address] [place] [address] 08/28/2014 09:52:38 08/28/2014 10:48:58 Hypertensive disorder [id number] he ida l do labs today and repeat in 6-8 wks. Needs infl uenza immunization [id number] Type 2 bc betes mellitus without complication [id number] risk/benef it prostate cancer screening discussed, pt will defer [id number] Nola stroud MD Main Office [address] [address] 02/18/2015 09:20:13 02/18/2015 10:20:00 Type 2 diabetes mellitus without complication [id number] 2008/ pt had A1c was 9.5/ pt made lifestyle changes and A1c is controlled below 6 Essential hypertension 97964991 Hyperlipidemia 35854281 [id number] Nola stroud MD Main Office [address] [address] 04/13/2016 08:45:45 04/13/2016 09:46:38 Type 2 diabetes mellitus without complication 687333965 E11.9 2009/ pt had A1c was 9.5/ pt made lifestyle changes and A1c is controlled below 6 Body mass index 30+ - obesity 662882752 Z68.30 Essential hypertension 60118075 I10 Screening for malignant neoplasm of colon 641597302 Z12.11 Adult heal th examination 229606545 Z00.00 Hyperlipidemia 63540162 E78.5 [id number] Nola stroud MD Main Office [address] [address] 10/26/2016 09:14:48 10/26/2016 09:44:29 Type 2 diabetes mellitus without complication 595902419 E11.9 2008/ pt had A1c was 9.5/ pt made lifestyle changes and A1c is controlled below 6. continue current plan Hypertensive disorder 38 040234 I10 well controlled on ARB [id number] Nola stroud MD Main Office [address] [address] 05/01/2017 08:46:37 05/01/2017 09:40:46 Adult health examination 457435731 Z00.00 Type 2 bc betes mellitus without complication 613146854 E11.9 2009/ pt had A1c was 9.5/ pt made lifestyle changes and A1c is controlled below 6. continue current plan Polyp of colon 65754662 K63.5 Dr Moran wants to repeat colon 2020 [id number] Nola stroud MD Main Office [address]40 [facility] [address] [place] [address] 01/28/2018 14:40:16 01/28/2018 15:42:48 Type 2 diabetes mellitus without complication 577813092 E11.9 2009/ pt had A1c was 9.5/ pt made lifestyle changes and A1c is controlled below 6. 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 Tinnitus 71735425 H93.13 Hypertensive disorder 38 775786 I10 well controlled on ARB [id number] Nola stroud MD Main Office 3640 [facility] [address] [place] [address] 05/13/2018 08:56:34 05/13/2018 09:39:42 Adult health examination 680670419 Z00.00 Type 2 bc betes mellitus without complication 143269956 E11.9 Hyperlipidemia 05850032 E78.5 Essential hypertension 81915950 I10 Vasectomy requested 1839 28244 Z30.2 Reduced libido 1179826 R 68.82 [id number] Terrance Norton MD Main Office [address] [facility] [address] [place] [address] 12/17/2018 09:54:41 12/17/2018 11:05:50 Type 2 diabetes mellitus without complication 791740427 E11.9 Controlled . Continue medication s as prescribed . Repeat labs prior to next visit. Visual disturbance 02384 001 H53.9 Pt. was recom. to see an ophthalmol ogist. Essential hypertension 12107557 I10 stable control. Continue current meds. 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 [id number] Terrance Norton MD Main Office [address]40 [facility] [address] [place] [address] 07/22/2019 09:21:57 07/22/2019 10:34:14 Adult health examination 670817977 Z00.00 UTD on vaccines, colonoscop y 2017 on 3 year schedule, PSA 2018 Type 2 bc betes mellitus without complication 187256385 E11.9 Stable, A1c 5.1%. Microalbum in stable as of 06/06. Per Dr. Hernandez, endocrinol ogist, he has stopped Metformin as of 06/06. Checks blood sugar several times per week. Continue low-fat diet, carb control, exercising . Hyperlipidemia 33970611 E78.00 Continue on atorvastat in. Continue low-fat diet and exercising . Repeat fasting lipids. Essential hypertension 00756991 I10 Stable control. Taking 1/2 a pill of 50mg losartan daily. Checking bp several times/wk. 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
--- OUTSIDE RECORDS SUMMARY | 2025-10-08 19:56 | XMS_ITS | Continuity of Care Document ---
Author Organization [facility], Main Office Address [address] [facility] [address] [place] [phone] Care Team Providers Care Agency Director Name Role Phone [place] AMAYA JR Managing Partner CAROL NEWMAN Primary Care Provider YUNI CUTLER Urologist NIKIA MEJIA Shotgun Shell Reprinting Unit Operator RADHA JOSE Marine Fireman ANDRE JOSUE Architectural Drafting Instructor SWANSEA PODIATRY Recenterer Assessment No assessment recorded. Plan of Treatment Reminders Order Date Submit Date Provider Last Modified By Organization Details Last Modified Time Details Appointments PE EST 2025 08:30A M Carol Newman PAKrzysztof Not available Not available Not available Lab hemoglobi n A1C, fingersti ck 2024 025 In-Office Order, Internal Use Only DO Not Attach Compendium DO Not Attach Compendium, Do Not Delete/merge, [id number] 08/24/2025 09:06:50 CMP, serum or plasma 2024 025 [place] [facility] (Centralized Electronic Ordering - All Locations), Patient Can Go To The Location Of Their Choice, [id number] 08/24/2025 09:54:56 microalbu min/creat inine, mass ratio, urine 2024 025 [place] [facility] (Centralized Electronic Ordering - All Locations), Patient Can Go To The Location Of Their Choice, [id number] 08/24/2025 09:54:56 HbA1c (hemoglob in A1c), blood 2024 [place] [facility] (Centralized Electronic Ordering - All Locations), Patient Can Go To The Location Of Their Choice, [id number] 08/24/2025 09:54:58 lipid panel, serum 2024 [place] [facility] (Centralized Electronic Ordering - All Locations), Patient Can Go To The Location Of Their Choice, [id number] 08/24/2025 09:55:19 Referral None recorded. Procedures None recorded. Surgeries None recorded. Imaging None recorded. Medication Orders Ozempic 1 mg/dose (4 mg/3 mL) subcutane ous pen injector [facility]24 [facility], [address] [place] [address], [id number], 08/24/2025 10:22:00 Patient TargetsNo targets recorded. Patient Instructions Encounter Date Encounter Id Patient Instructions Last Modified By Organization Details Last Modified Time 08/24/2025 [id number] high blood pressure: care instructions Not available 08/24/2025 10:00:08 learning about high blood pressure Not available 08/24/2025 10:00:08 type 2 diabetes: care instructions Not available 08/24/2025 09:03:10 high cholesterol : care instructions Not available 08/24/2025 09:55:17 body mass index: care instructions Not available 08/24/2025 10:00:08 learning about healthy weight Not available 08/24/2025 10:00:08 Reason for Referral None Reported. Results Created Date Observation Date Name Description Value Unit Range Abnormal Flag Note LastModifiedBy Organization Detail LastModifiedTime 08/24/2008/24/2025 hemog lobin A1C, finge rstic k A1C 5.1 % 4-6 normal Not Available In-Office Order Internal Use Only DO Not Attach Compendium DO Not Attach Compendium, Do Not Delete/merge, [id number] 08/24/2025 08:34:44 Result Notes None recorded. Problems Name Problem SNOMED Code Status Onset Date Resolution Date Notes Provider Name and Address Organization Details Recorded Time Hyperten sive disorder 36314894 Completed 07/22/2019 Barbara Marquezgloriaberhane jonny, [facility] 9 09:41:10 Kimber mitchellen johny 88589660 Active Not Available [facility] 3 17:06:32 Influenz a vaccine needed 46064249220 06 Completed 200806/09/2014 RECORDED 02/20/20 09 8:55AM BY DM FERREIRA, HISTORIC AL SUMMARY Nola fuller, [facility] 6 09:01:29 Active or passive immuniza tion Completed 200806/09/2014 RECORDED 02/20/20 09 8:53AM BY NOLA JEAN MD, OFFICE VISIT Nola fuller [facility] 6 09:01:29 Influenz a vaccine needed [id number] 06 Completed 200806/29/2014 RECORDED 02/20/20 09 8:55AM BY DM FERREIRA, BRADENIC AL SUMMARY Nola fuller, [facility] 6 09:01:29 Active or passive immuniza tion Completed 200806/29/2014 RECORDED 02/20/20 09 8:53AM BY NOLA JEAN MD, OFFICE VISIT Nola fuller [facility] 6 09:01:29 Blood chemistr y outside referenc e range [id number] Completed 201206/09/2014 RECORDED 07/29/20 13 9:08AM BY JOYCELYN NEWMAN MA, ANNOTATI ON/ADDEN DUM Nola fuller, [facility] 6 09:01:29 Jorge hawk [id number] Completed 201206/09/2014 RECORDED 07/29/20 13 9:08AM BY JOYCELYN NEWMAN MA, ANNOTATI ON/ADDEN DUM Nola fuller, [facility] 6 09:01:29 Type 2 diabetes mellitus without complica tion 175255517 Active 2012 Harry stevenson MA null, [facility] 5 08:34:11 Hyperlip idemia 37244091 Active 2012 Not Available [facility] 3 17:06:32 Uncontro lled type 2 diabetes mellitus 629758912 Completed 201206/09/2014 RECORDED 07/29/20 13 9:08AM BY JOYCELYN NEWMAN MA, ANNOTATI ON/ADDEN DUM Nola Belle ro null, [facility] 6 09:01:28 Increase d frequenc y of urinatio n [id number] Completed 201206/09/2014 RECORDED 07/29/20 13 9:08AM BY JOYCELYN NEWMAN MA, JOSE ON/ADDEN DUM Nola Belle ro null, [facility] 6 09:01:29 Viral exanthem [id number] Completed 201206/09/2014 IMPRESSI ON: RECENT VIRAL LIKE ILLNESS, NOW WITH MILDLY PRURITIC PAPULAR SYSTEMIC APPEARRI NG RASH. NOT CONSISTE NT WITH HAND/ADRIEL T/MOUTH ON EXAM. REASSURE D PT THIS WILL LIKELY RESOLVE SPONTANE OUSLY. MAY CONTINUE WITH OTC BENADRYL PRN. F/U IF SXS WORSEN OR FAIL TO IMPROVE. ; RECORDED 07/29/20 13 9:08AM BY JOYCELYN NEWMAN MA, ANNOTATI ON/ADDEN DUM Nola Belle ro null, [facility] 6 09:01:28 Visual disturba nce [id number] Completed 201206/09/2014 RECORDED 07/29/20 13 9:08AM BY JOYCELYN NEWMAN MA, JOSE ON/ADDEN DUM Nola Belle ro null, [facility] 6 09:01:28 Blood chemistr y outside referenc e range 021395036 Completed 201206/29/2014 RECORDED 07/29/20 13 9:08AM BY JOYCELYN NEWMAN MA, EDATI ON/ADDEN DUM Nola Elizabeth'Alessand ro null, [facility] 6 09:01:29 Jorge hawk [id number] Completed 201206/29/2014 RECORDED 07/29/20 13 9:08AM BY JOYCELYN NEWMAN MA, EDATI ON/ADDEN DUM Nola D'Alessand ro null, [facility] 6 09:01:29 Uncontro lled type 2 diabetes mellitus 494812278 Completed 201206/29/2014 RECORDED 07/29/20 13 9:08AM BY JOYCELYN NEWMAN MA, JOSE ON/ADDEN DUM Nola Chavarria'Alessand ro null, [facility] 6 09:01:28 Increase d frequenc y of urinatio n [id number] Completed 201206/29/2014 RECORDED 07/29/20 13 9:08AM BY JOYCELYN NEWMAN MA, JOSE ON/ADDEN DUM Nola Chavarria'Alessand ro null, [facility] 6 09:01:29 Viral exanthem [id number] Completed 201206/29/2014 IMPRESSI ON: RECENT VIRAL LIKE [...] JOSE ON/ADDEN DUM Nola Elizabeth'Alessand ro null, [facility] 6 09:01:28 Visual disturba nce [id number] Completed 201206/29/2014 RECORDED 07/29/20 13 9:08AM BY JOYCELYN NEWMAN MA, JOSE ON/ADDEN DUM Nola D'Alessand ro null, [facility] 6 09:01:28 Adult health examinat ion Completed 201306/09/2014 RECORDED 02/05/20 14 8:29AM BY DAMARIS SCALES MA, ANNOTATI ON/ADDEN DUM Nola Belle ro null, [facility] 6 09:01:29 Hemorrho ids [id number] Completed 201306/09/2014 RECORDED 02/05/20 14 8:29AM BY DAMARIS SCALES MA, ANNOTATI ON/ADDEN DUM Nola Belle ro null, [facility] 6 09:01:28 Renewal of prescrip tion Completed 201306/09/2014 RECORDED 02/05/20 14 8:29AM BY DAMARIS SCALES MA, ANNOTTANESHA ON/ADDEN DUM Nola Belle ro null, [facility] 6 09:01:29 Patient status finding [id number] Completed 201306/09/2014 RECORDED 02/05/20 14 8:29AM BY DAMARIS SCALES MA, JOSE ON/ADDEN DUM Nola Belle ro null, [facility] 6 09:01:29 Tubercul osis screenin g Completed 201306/09/2014 RECORDED 02/05/20 14 8:30AM BY DAMARIS SCALES MA, NURSE VISIT Nola stroud null, [facility] 6 09:01:29 Administ ration of diphther ia and tetanus vaccine Completed 201305/01/2017 Shirley Edward MA null, [facility] 7 09:07:58 Adult health examinat ion Completed 201306/29/2014 RECORDED 02/05/20 14 8:29AM BY DAMARIS SCALES MA, JOSE ON/ADDEN DUM Nola Belle ro null, [facility] 6 09:01:29 Hemorrho ids [id number] Completed 201306/29/2014 RECORDED 02/05/20 14 8:29AM BY DAMARIS SCALES MA, ANNOTATI ON/ADDEN RONN fuller, [facility] 6 09:01:28 Renewal of prescrip tion Completed 201306/29/2014 RECORDED 02/05/20 14 8:29AM BY DAMARIS SCALES MA, ANNOTATI ON/ADDEN DUM Nola stroud null, [facility] 6 09:01:29 Patient status finding [id number] Completed 201306/29/2014 RECORDED 02/05/20 14 8:29AM BY DAMARIS SCALES MA, ANNOTTANESHA ON/ADDEN DUM Nola stroud null, [facility] 6 09:01:29 Tubercul osis screenin g Completed 201306/29/2014 RECORDED 02/05/20 14 8:30AM BY DAMARIS SCALES MA, NURSE VISIT [facility], 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 5 09:39:42 Problem Notes None recorded. Procedures Surgical History Date Name Laterality Status Provider Name and Address Organization Details Recorded Time 02/04/20 25 Diabetic Foot Exam (Monofilament) completed Carlos Quintanilla [facility] 02/03/2025 09:47:21 01/15/20 24 Diabetic Foot Exam (Monofilament) completed Carol Newman PA-C [address] [address], [place], [address], [facility] 01/15/2024 10:38:41 04/11/20 23 Diabetic Foot Exam (Monofilament) completed Carol Newman PA-C [address] [address], [place], [address], [facility] 04/11/2023 10:52:21 12/20/19 23 Diabetic Foot Exam (Monofilament) completed Carol Newman PA-C [address], [address], [facility] 12/20/2022 09:56:52 04/12/20 21 Diabetic Foot Exam (Monofilament) completed German Chance [facility] 04/12/2021 09:47:47 10/19/20 20 Diabetic Foot Exam (Monofilament) completed Carol Newman PA-C [address] [address], [place], [address], [facility] 10/19/2020 13:04:47 06/18/20 20 Colonoscopy completed Aida Wilburn [facility] 06/23/2020 09:43:48 09/29/20 18 Vasectomy completed Ly Ferreira MA [facility] 10/19/2020 09:23:43 12/08/19 17 Egd diagnostic brush wash completed Connie Coles [facility] 05/15/2018 15:45:57 11/19/19 14 Other completed Karolina faustin MA [facility] 04/13/2016 08:48:46 08/19/19 72 Tonsillectomy completed Ly Ferreira MA [facility] 11/04/2021 09:55:38 05/01/19 71 Tonsillectomy completed Karolina faustin MA [facility] 04/13/2016 08:48:46 Tonsillectomy completed Shirley Edward MA [facility] 05/01/2017 09:16:30 Imaging Results None recorded. Procedure [...] 09 8:57AM BY NOLA JEAN MD, JOSE ON/YISEL DUM; Not Available Not Available Not Available [...] 11 8:40AM BY NOLA JEAN MD, ANNOTATI ON/ADDENDER DUM; Not Available Not Available Not Available IBU-200 take 3 tablets as needed 01/15 completed Not Available Not Available Not Available Freestyle System NA 12/27 completed RECORDED 02/25/20 10 4:22PM BY LESVIA HARRISON MD, MEDICATI ON AUTO-MIKA CTIVATIO N; Not Available Not Available Not Available OneTouch Ultra Test TID. DIAGNOSI S: DIABETES 01/01 completed RECORDED 01/01/20 09 2:31PM BY TOPHER Erickson, HISTORIC AL SUMMARY; NOT COVER PER PHARM Not Available Not Available Not Available OneTouch Ultra2 Meter NA 01/01 completed RECORDED 01/01/20 09 2:31PM BY TOPHER Erickson HISTORIC AL SUMMARY; NOT COVERED PER PHARMACY Not Available Not Available Not Available Gavilyte- C 240 gram-22.7 2 gram-6.72 gram-5.84 gram oral solution 10/26 completed Not Available Not Available Not Available B12 1 daily active unknown strength Not Available Not Available Not Available Afluria Quad 7303-2518 60 mcg/0.5 mL intramusc ular suspensio n [...] Not Available Not Available Vitals Date Recorded Body height Body mass index (BMI) Body weight Heart rate Oxygen saturation Body temperature Systolic And Diastolic Provider Name and Address Organization Details Last Updated DateTime 5 177.8 cm 30.4 kg/m2 61500.5 8 g 91 /min 96 % 97.4 [degF] 124/82 mm[Hg] Harry thomas MA [facility] 5 08:41:26 Social History Question Answer Notes LastModified by Organizat ion Details LastModified Time Tobacco Smoking Status Current Some Day Smoker Cigars a few times weekly [facility] 12/20/2022 09:11:02 Do You Have An Advance Directive? No Information not available 05/14/2024 Is Blood Transfusion Acceptable In An Emergency? Yes Information not available 04/13/2016 What Is Your Level Of Caffeine Consumption? Moderate 1 Serving Of Coffee Daily Information not available 01/15/2024 How Much Tobacco Do You Chew? None Information not available 04/13/2016 What Type Of Diet Are You Following? DIABETIC [email or web address] Information not available 10/19/2020 Which Illicit Or Recreational Drugs Have You Used? Marijuana Smoking And Edibles, About Once Weekly Information not available 12/20/2022 Live Alone Or With Others? Alone Pt Has Partners / 2 Children Age 30 And 18 [email or web address] Information not available 03/22/2022 Do You Take [...] Or Greater Than 100 Degrees Fahrenheit? No [email or web address] Information not available 04/12/2021 Are You Or Anyone In Your Household A Health Care Provider Or Emergency Responder? No [email or web address] Information not available 04/12/2021 To The Best Of Your Knowledge Have You Been In Close Proximity To Any Individual Who Tested Positive For COVID-19? No Information not available 10/19/2020 Have You Recently Traveled To A COVID-19 High Risk Area Or Gathering In The Last 10 Days? No [email or web address] Information not available 04/12/2021 What Was The Date Of Your Most Recent Tobacco Screening? 02/03/2025 Information not available 02/03/2025 How Many Children Do You Have? 2 Lola Information not available 01/15/2024 Do You Use Protection During Sex? Usually Information not available 04/13/2016 Do You Use Your Seat Belt Or Car Seat Routinely? Yes [email or web address] Information not available 11/04/2021 Seat Belts Used Routinely Yes [email or web address] Information not available 03/22/2022 Are You Sexually Active? Yes Information not available 04/13/2016 Smoke Alarm In Home Yes [email or web address] Information not available 03/22/2022 Do You Have Smoke And Carbon Monoxide Detectors In Your Home? Yes Information not available 11/04/2021 At What Age [...] other forms of tobacco or nicotine? No Information not available 12/20/2022 What is your level of alcohol consumption? Occasional [employer] Information not available 07/31/2014 Do you or have you ever used smokeless tobacco? Never used smokeless tobacco [email or web address] Information not available 10/19/2020 Are you currently employed? Yes [email or web address] Information not available 07/31/2014 Are you able to walk independently without assistance or assistive devices? [email or web address] Information not available 12/20/2022 Are you able to care for yourself independently? 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 Never used electronic cigarettes Information not available 12/20/2022 What is your exercise level? Occasional gym 3 x week and golf Information not available 05/14/2024 Mental Status None recorded. Family History Relationship Description Onset Age of this Age Resolved Age Notes LastModified by Organization Details LastModified Time Mother Diabetes mellitus 80 Mom was not on insuli n [email or web address] Not available 05/01/2017 09:21:54 Mother Parkinson's disease [email or web address] Not available 03/22 09:07:05 Mother Dementia [email or web address] Not avail able 04/13/2016 09:32:43 Father Hypertensive disorder Dad at age 81 [email or web address] Not available 05/01/2017 09:20:19 Father Malignant neoplasm of stomach 78 81 [email or web address] Not available 09:23:29 Brother Hyperlipidem ia [email or web address] Not available 03/22 09:07:05 Medical History Condition Response Gout N Other N Kidney Stones N Blood Diseases N Hyperthyroidism N Breast Cancer N Hypothyroidism N Lung Disease N Depression N COPD N Defects or Inherited Disease N Anesthesia Complications N Headaches/Migraines N Anxiety Disorder N Varicose Veins N Obesity N Vision or Eye Problems N Arthritis N Head Injury/Concussion N Infertility N Polyps N Congenital Anomalies N Acid Reflux (GERD) Y Cancer N Stroke N ADHD N Endometriosis N High Cholesterol Y Liver Disease N Fibromyalgia N Kidney Disease N Heart Problems N Ear or Hearing Problems N Hospitalizations N Thyroid Problems N GI Problems N Acne N Eating Disorder N Skin Problems N Anemia N Constipation N Bladder Problems N Mental Illness N Diabetes Y Ovarian Cancer N Blood Transfusions N Seizures/Epilepsy N Tuberculosis N AIDS/HIV N Congestive Heart Failure (CHF) N Eczema N Abuse/Domestic Violence N Diverticulitis N Asthma N Allergies N Reflux/GERD N Hepatitis N Pulmonary Embolism N Hypertension Y Chicken Pox N Autism Spectrum Disorder (ASD) N Osteoporosis N Immunizations Vaccine Type Date Status Note Provider Nam e and Address Organization Details Recorded Time Td (adult), 2 Lf tetanus toxoid, preservative free, adsorbed 5 completed Karla fuller [facility] 08/23/2023 08:30:19 pneumococcal polysaccharide PPV23 9 completed Karla fuller [facility] 08/23/2023 08:30:19 Influenza, split virus, trivalent, preservative 8 completed Karla fuller [facility] 08/23/2023 08:30:19 Tdap 4 completed Karla fuller [facility] 08/23/2023 08:30:19 Influenza, split virus, quadrivalent, preservative 7 completed Karla fuller [facility] 08/23/2023 08:30:19 Influenza, split virus, quadrivalent, preservative 9 completed Karla Gutierrez null, [facility] 08/23/2023 08:30:19 COVID-19, mRNA, LNP-S, PF, 30 mcg/0.3 mL dose 1 completed Karla Gutierrez null, [facility] 08/23/2023 08:30:19 COVID-19, mRNA, LNP-S, PF, 30 mcg/0.3 mL dose 1 completed Karla Gutierrez null, [facility] 08/23/2023 08:30:19 COVID-19, mRNA, LNP-S, PF, 30 mcg/0.3 mL dose 1 completed Karla Gutierrez null, [facility] 08/23/2023 08:30:19 Influenza, split virus, quadrivalent, PF 1 completed Karla Gutierrez null, [facility] 08/23/2023 08:30:19 COVID-19, mRNA, LNP-S, PF, 30 mcg/0.3 mL dose, cassius-sucrose 2 completed Karla Gutierrez null, [facility] 08/23/2023 08:30:19 Influenza, split virus, quadrivalent, PF 0 completed Karla Gutierrez null, [facility] 08/23/2023 08:30:19 Influenza, split virus, trivalent, preservative 6 completed Karla Gutierrez null, [facility] 08/23/2023 08:30:19 Influenza, MDCK, quadrivalent, PF 9 completed Karla Gutierrez null, [facility] 08/23/2023 08:30:19 zoster recombinant 2 completed Karla Gutierrez null, [facility] 08/23/2023 08:30:19 Influenza, high-dose, trivalent, PF 8 completed Karla Gutierrez null, [facility] 08/23/2023 08:30:19 Influenza, split virus, trivalent, preservative 4 completed Karla fuller, [facility] 08/23/2023 08:30:19 Influenza, split virus, trivalent, preservative 5 completed [facility] 08/[facility] 08:30:19 Influenza, split virus, trivalent, PF 4 completed Karla fuller, [facility] 08/23/2023 08:30:19 COVID-19, mRNA, LNP-S, bivalent, PF, 30 mcg/0.3 mL dose 2 completed Karla fuller, [facility] 08/23/2023 08:30:19 Influenza, split virus, quadrivalent, PF 3 completed Karla fuller, [facility] 08/23/2023 08:30:19 zoster recombinant 2 completed Karla fuller, [facility] 01/15/2024 12:51:14 Td (adult), 5 Lf tetanus toxoid, preservative free, adsorbed 4 completed Ines Miles null, [facility] 01/21/2024 09:28:11 Pneumococcal conjugate PCV20, polysaccharide [id number] conjugate, adjuvant, PF [address] jonny, [facility] 02/26/2025 13:30:30 Influenza, split virus, quadrivalent, PF 2 completed Carol Newman PA-C [address] [address], [place], [address], [facility] 08/16/2022 13:43:23 Influenza, split virus, trivalent, PF 4 completed Carol Newman PA-C [address] [address], [place], [address], [facility] 11/04/2024 10:32:18 Past Encounters Encounter ID Performer Location Encounter Start Date Encounter Closed Date Diagnosis/Indication Diagnosis SNOMED-CT Code Diagnosis ICD10 Code Diagnosis IMO Codes Diagnosis Note [id number] Chauncey Wilson MD Main Office [address] [facility] [place] [id number] 08/24/2025 08:26:11 08/24/2025 09:07:47 Type 2 diabetes mellitus without complication 899370900 E11.9 Stable type II diabetes w/o complicati ons. A1c is 5.1% on Ozempic 1 mg weekly dose.Recom to continue current treatment, diabetic diet and exercise. Repeat labs fasting prior to 6 m visit. Hyperlipidemia 37456727 E78.00 Continue on atorvastat in and low fat diet. Body mass index 30+ - obesity 220662134 Z68.30 E66.9 778129 7418129 Pt lost additional 14 lbs since his last visit 3 m ago on increased dose of Ozempic 1 mg.Recom to continue Ozempic 1 mg weekly , exercise and low lindsey diet. Essential hypertension 96555258 I10 improved blood pressure since 14 lb weight loss. continue DASH diet and current medic. Health Concerns Section Related Observation LastModified by Organization Detai ls LastModified Time None Recorded Concern Status LastModified by Organization Details LastModified Time None Recorded Payers Encounter Date Sequence Insurance Name Policy Number Policy Valencia Covered Member ID Valencia Member ID Guarantor Name 08/24/2025 1 [facility] (MEDICARE REPLACEMENT /ADVANTAGE - PPO) [id number] Lora Ferreira [id number] Severo Fay Notes Date Note Type Note Provider Name and Address Organization Details Recorded Time 08/24/2025 text/html Hypertension F/UReported by PatientHPIFor associated symptoms, patient reportsno dizziness,no lightheadedness,no chest pain,no shortness of breath,no palpitations,no edema, andno calf pain with exertion. For lifestyle, patient reportsregular exercise,limiting/av oiding salt,exercises 3 times/week, andexercises for 90 minutes/day(low [...] in February.ROS as noted in the HPI Carol Newman PA-C [id number] [address], [place], [address], [facility] [place] 08/24/2025 10:00:12
--- OUTSIDE RECORDS SUMMARY | 2025-10-08 19:56 | XMS_ITS | Patient Health Record ---
Author Organization [facility] [place] Address [address] [address] Care Team Providers Care Gamma Ray Operator Name Role Phone Carol Goodman PA-C Primary Care Provider Unav ailable José Antonio Ochoa Unavailable [phone] Allergies No Known Allergies Reason For Referral No Information Medications Medication SIG (Take, Route, Frequency, Duration) Notes Start Date End Date Status Losartan Potassium 100 MG 1 tablet Orall y Once a day Active Atorvastatin Calcium 20 MG 1 tablet Oral ly Once a day Active Tadalafil 20 MG 1 tablet as needed O rally Once a day Active Social History Tobacco Use: Social History Observation Description Date Details (start date - stop date) Never Smoker NA - NA Tobacco Use/Smoking Question Answer Notes Are you a: nonsmoker Additional Findings: Tobacco Non-User Current no n-smoker Alcohol Screen Question Answer Notes Did you have a drink containing alcohol in the p ast year? Yes Points 0 Interpretation Negative Tobacco use other than smoking: Question Answer Notes Are you an other tobacco user? No Problems Problem Type SNOMED Code ICD Code Onset Dates Problem Status W/U Status Risk Notes Problem Osteoarthritis of midtarsal joint of left foot (6929605651996874 ) Osteoarthritis of midtarsal joint of left foot (M19.072) Active confirmed Problem Osteoarthritis of midtarsal joint of right foot (6989648065092855 ) Osteoarthritis of midtarsal joint of right foot (M19.071) Active confirmed Plan Of Treatment Pending Test Test Name Order Date X ray : Foot, left 3V 09/15/2024 X ray : Foot, right 3V 09/15/2024 Insurance Providers Payer Name Payer Address Payer Phone Subscriber Number Group Number Insured Name Patient Relationship to Insured Coverage Start Date Coverage End Date [employer] BETZAIDA Gann [phone] [id number] Severo Fay Self - patient is the insured Medical (General) History Medical History History ICD Code Chicken pox Sciatica Hypercholesterolemia Diabetes mellitus - diet controlled
[2025-10-28 10:08] VITALS: BMI 31.8
--- NOTE | 2025-10-29 08:38 | HO.ANESPROP2 ---
Documented by User: Yani Campbell NP 10/29/25 08:38 HPI - Anesthesia Eval Consult details Narrative: 60yo M for Colonoscopy Anesthesia Pre-Procedure Meds Is the patient on any of the following meds?: GLP1/DPP4 PMFSH Past Medical History Medical History H/O hypercholesterolemia HTN (hypertension) Diabetes mellitus Surgical History Surgical History (Updated 10/28/25 @ 10:04 by Tamy Shay RN) Hx of vasectomy Hx of tonsillectomy S/P Achilles tendon repair (2003) Hx of colonoscopy (2019) Social History Social History (Updated 10/28/25 @ 10:05 by Tamy Shay RN) Patient Tobacco Use Status: Current someday Tobacco user Tobacco use type: Cigar Substance Use Frequency: Occasionally Have you been hit, kicked, punched, or otherwise hurt by someone within the past year? If so, by whom?: No Are you DNR?: No Advance Directives: No Advance Directives Information Provided: Yes Meds Allergies Allergy/AdvReac Type Severity Reaction Status Date / Time No Known Allergies Allergy Verified 10/29/25 08:39 Home Medications ?Medication ?Instructions ?Recorded ?Confirmed ?Last Taken ?Type aspirin 81 mg tablet 81 mg PO DAILY 10/28/25 10/28/25 10/22/25 History atorvastatin 20 mg tablet 20 mg PO DAILY 10/28/25 10/28/25 Unknown History losartan 50 mg tablet 50 mg PO DAILY 10/28/25 10/28/25 Unknown History semaglutide 1 mg/dose (4 mg/3 mL) 1 mg subcut QWEEK 10/28/25 10/28/25 10/20/25 History subcutaneous pen injector (Ozempic) tadalafil 20 mg tablet 20 mg PO DAILY 10/28/25 10/28/25 Unknown History Exam Height,Weight and Vital Signs: Height 5 ft 9 in Weight 97.749 kg Assessment and Plan Assessment Anesthesia Assessment: Chart Reviewed Documented by User: Pancho Allen MD 10/30/25 08:06 [facility] Past Medical History Medical History H/O hypercholesterolemia HTN (hypertension) Diabetes mellitus Cognitive capacity: normal Functional capacity: independent ambulation Family History Family history of problems with anesthesia: No Surgical History Surgical History (Updated 10/28/25 @ 10:04 by Tamy Shay RN) Hx of vasectomy Hx of tonsillectomy S/P Achilles tendon repair (2003) Hx of colonoscopy (2019) History of Problems with Anesthesia: No Social History Social History (Updated 10/28/25 @ 10:05 by Tamy Shay RN) Patient Tobacco Use Status: Current someday Tobacco user Tobacco use type: Cigar Substance Use Frequency: Occasionally Have you been hit, kicked, punched, or otherwise hurt by someone within the past year? If so, by whom?: No Are you DNR?: No Advance Directives: No Advance Directives Information Provided: Yes Meds Allergies Allergy/AdvReac Type Severity Reaction Status Date / Time No Known Allergies Allergy Verified 10/29/25 08:39 Home Medications ?Medication ?Instructions ?Recorded ?Confirmed ?Last Taken ?Type aspirin 81 mg tablet 81 mg PO DAILY 10/28/25 10/28/25 10/22/25 History atorvastatin 20 mg tablet 20 mg PO DAILY 10/28/25 10/28/25 Unknown History losartan 50 mg tablet 50 mg PO DAILY 10/28/25 10/28/25 Unknown History semaglutide 1 mg/dose (4 mg/3 mL) 1 mg subcut QWEEK 10/28/25 10/28/25 10/20/25 History subcutaneous pen injector (Ozempic) tadalafil 20 mg tablet 20 mg PO DAILY 10/28/25 10/28/25 Unknown History Exam Exam Date and Time: 10/30/25 Airway Mallampati Class: I TM Dist: >3cm Neck ROM: Full Loose/Missing/Broken Teeth: No Heart: rrr Lungs: cta Other: normal Assessment and Plan Assessment Anesthesia Assessment: Anesthesia Plan Discussed Final Anesthetic Review Family History of Problems with Anesthesia: No History of Problems with Anesthesia: No NPO: Yes ASA Class: II Final Preanesthetic Review: No Changes in Pt Med Stat, Meds/Allgs Chart Reviewed, Consent Obtained/Reviewed and Anes Risks/Benef Reviewed Patient Risk: Low Procedure Risk: Low Anesthetic Plan Anesthetic Plan: MAC: Disposition: Standard PACU
[2025-10-30 07:49] VITALS: BP 144/85; PULSE 92; RESP 17; TEMP 36.9; O2SAT 97; BMI 30.3
[2025-10-30 07:51] LABS: Glucose, Whole Blood 117 mg/dL (60-115)
[2025-10-30] MEDS: Lactated Ringers 1,000 ML 100 ML IVCONT (08:03)
--- NOTE | 2025-10-30 08:19 | MHC.SHP ---
Pre-Procedural Eval Section A - 24 Hr Update-Section A only Date of Service: 10/30/25 Section B - Complete if H&P > 30 days Chief Complaint: screening Details of Present Illness: see H&P no changes Relevant Family History (Specify if Yes): No Relevant Social History: None Present Medications: see Short Stay Collaborative assessment Medical History: No relevant PMH History of Previous Operations: No relevant previous surgery Allergies: Allergies Allergy/AdvReac Type Severity Reaction Status Date / Time No Known Allergies Allergy Verified 10/29/25 08:39 Review of Systems Sugical H&P ROS: Negative: Constitution, Cardiovascular, Respiratory, Neurological, Psychiatric, Hem-Onc, Allergic/Immunologic, Gastrointestinal, Genitourinary, Musculoskeletal, Integumentary, Endocrine and Eyes/Ears/Nose/Throat Exam Surgical H&P Exam: Normal: HEENT, Normal: Heart, Normal: Lungs, Normal: Extremities, Normal: Abdomen, Normal: Skin and Normal: Neurological Plan Diagnosis/Plan: Unchanged I have reviewed the history and physical and performed a pertinent physical examination on my patient. No changes have occurred unless specified. Time Spent With Patient Time: Total time managing care of this patient today ____ minutes.
[2025-10-30 09:05] VITALS: BP 99/64; PULSE 94; RESP 16; TEMP 36.5; O2SAT 95
[2025-10-30 09:20] VITALS: BP 114/76; PULSE 84; RESP 15; O2SAT 100
--- NOTE | 2025-10-30 09:28 | OP_ITS ---
DATE OF SERVICE: 10/30/2025 SURGEON: Ayad Moran MD INDICATIONS: Colon cancer screening and prior history of adenomatous colon polyps. PREOPERATIVE DIAGNOSIS: POSTOPERATIVE DIAGNOSIS: PROCEDURE PERFORMED: Colonoscopy to the cecum with snare polypectomy. ESTIMATED BLOOD LOSS: COMPLICATIONS: ANESTHESIA: Medications, monitored anesthesia care. ASSISTANTS: SPECIMENS: DESCRIPTION OF PROCEDURE: A history and physical were performed. The risks and benefits of the procedure explained to the patient. Informed consent was obtained. The patient was placed in the left lateral decubitus position. A digital rectal exam was performed was found to be normal. The Olympus pediatric video colonoscope was introduced through the rectum and advanced to the cecum. The cecum was identified by transillumination, palpation, and identification of ileocecal valve. Examination was performed and the scope was removed. He tolerated the procedure well and was taken to recovery area in stable condition. FINDINGS: The terminal ileum was not examined. The visualized colonic mucosa was normal. The quality of the prep was good. A single polyp in the cecum measuring approximately 7 mm was identified and removed with a cold snare. This was recovered via suction and a biopsy was obtained from the polypectomy site. No other polyps were identified. The views of the cecum were somewhat limited due to liquid stool, which was washed and suctioned as best possible. No other polyps were identified. Retroflexed examination was normal. IMPRESSION: Colon polyp. RECOMMENDATION: 1. Follow up as needed. 2. Repeat colonoscopy is recommended in 5 years if the polyp is a tubular adenoma. MD MARCY Rodriguez/VIVIANA / [id number]
[2025-10-30 09:30] VITALS: BP 121/81; PULSE 89; RESP 17; TEMP 36.3; O2SAT 100
== END 2025-10-30 09:46 | disposition home or self-care (01) ==
PROVIDERS: PCP Physician Assistant Medical; Visit Provider Internal Medicine Gastroenterology
PROC: 0DJD8ZZ Inspection of Lower Intestinal Tract, Via Natural or Artificial Opening Endoscopic (ICD-10-PCS; CPT 45378; principal; 2025-10-30 09:10)
DX: Z12.11 Encounter for screening for malignant neoplasm of colon (principal); Z86.0100 Personal history of colon polyps, unspecified; D12.0 Benign neoplasm of cecum; E11.9 Type 2 diabetes mellitus without complications
CPT/HCPCS: 45385; 82947; 88305; J2003; J2371; J2704